=== PATIENT | female | born 1980 | race Caucasian/White ===

== ENCOUNTER 2018-12-14 07:33 | Outpatient (CLI) | payer OTHER | END 2018-12-14 15:20 | disposition home or self-care (01) | LOC: RX STUDY 07:33 | DX: N93.0 Postcoital and contact bleeding (principal) ==

== ENCOUNTER 2022-06-10 07:14 | Day surgery (SDC) | payer OTHER ==
[~2022-06-10 07:14] MED LIST: MORGIDOX100 MG PO; VITAMIN D PO
[2022-06-10] MEDS ORDERED: PERCOCET 5-3251 EACH PO (12:43)
== END 2022-06-10 14:50 | disposition home or self-care (01) ==
LOC: CIR.AMB 07:14
PROVIDERS: ATTEND Surgery
DX: C73 Malignant neoplasm of thyroid gland (principal); E05.11 Thyrotoxicosis with toxic single thyroid nodule with thyrotoxic crisis or storm; Z88.5 Allergy status to narcotic agent